=== PATIENT | female | born 1985 | race Caucasian/White ===

== ENCOUNTER 2020-10-06 19:17 | Emergency (ER) | payer OTHER ==
[~2020-10-06] VITALS: Ht 160 cm; Wt 72.6 kg
[~2020-10-06 19:17] MED LIST: KEFLEX500 MG PO; ONDANSETRON ODT8 MG PO
--- NOTE | 2020-10-08 13:58 | EKG ---
[facility] [address] [facility] [place], [place] [address] Signed Sinus bradycardia with sinus arrhythmia Otherwise normal ECG No previous ECGs available Confirmed by GINO CALDERON DO ([id number]) on 10/08/2020 1:58:14 PM Electronically Signed By: GINO CALDERON DO 10/08/20 1358 PATIENT NAME: RANDI MUÑOZ Electrocardiogram DATE OF : 87 PHYSICIAN: GINO CALDERON DO REPORT #: [id number] REPORT IS CONFIDENTIAL AND NOT TO BE RELEASED WITHOUT AUTHORIZATION
== END 2020-10-06 20:05 | disposition home or self-care (01) ==
LOC: ED 19:17
DX: U07.1 COVID-19 (principal); Z87.891 Personal history of nicotine dependence; Z88.8 Allergy status to other drugs, medicaments and biological substances; Z88.2 Allergy status to sulfonamides; Z88.1 Allergy status to other antibiotic agents
CPT/HCPCS: 71045; 80053; 83735; 84484; 85025; 93005; 93010; 99285-25; C9803; U0003